=== PATIENT | female | born 1940 | race Caucasian/White ===

== ENCOUNTER 2017-05-04 10:40 | Inpatient (IN) | payer MEDICARE, MEDICAID ==
[~2017-05-04] VITALS: Ht 165.1 cm; Wt 63.5 kg
[~2017-05-04 10:40] MED LIST: ACET325T53 PO; AMIN30LI2 PO; ATOR10TA PO; BISA10SU12 RC; CHOL10005 PO; CRAN450C PO; ESCI10TA PO; FERR-38 PO; HYDR-552 PO; LEVO50TA8 PO; LISI10TA5 PO; METO-304 PO; MULT-1045 PO
--- NOTE | 2017-05-04 10:56 | NUR ---
Patient is admitted to telemetry floor under Dr Fuller for new onset seizure. Dr Fuller talked to our ER doctor. Baseline diagnostic tests will be done (blood, urine, CT head & chest x-ray) before sending patient to the floor per Dr Vinson.
[2017-05-04] MEDS ORDERED: IV NORMAL SALINE 500 ML BAG IV ONE (11:00)
[2017-05-04] MEDS ORDERED: RIVA10TA PO (11:04)
[2017-05-04] MEDS ORDERED: VITA200C70 PO (11:04)
[2017-05-04] MEDS ORDERED: DIPH25CA83 PO (11:04)
[2017-05-04] MEDS ORDERED: PANT40TA2 PO (11:04)
[2017-05-04] MEDS ORDERED: ALEN70TA3 PO (11:04)
[2017-05-04] MEDS ORDERED: MAGN400O6 PO (11:04)
[2017-05-04] MEDS ORDERED: COENZYME Q-10 PO (11:04)
[2017-05-04] MEDS ORDERED: AMLO2.5T PO (11:04)
[2017-05-04] MEDS ORDERED: ASCO500C16 PO (11:04)
[2017-05-04 11:26] LABS: EOSINOPHILS % (AUTO) 2.3 % (0.0-7.0); HEMATOCRIT 37.8 % (37-47); HEMOGLOBIN 12.6 G/DL (12.0-16.0); LYMPHOCYTES % (AUTO) 20.6 % (20.5-51.5); MEAN CORPUSCULAR HEMOGLOBIN 28.4 UUG (27.0-31.0); MEAN CORPUSCULAR HGB CONC 34 g/dL (32.0-37.0); MEAN CORPUSCULAR VOLUME 84.7 FL (81.0-99.0); MONOCYTES % (AUTO) 7.3 % (0.0-11.0); NEUTROPHILS % (AUTO) 69.1 % (38.5-71.5); RED BLOOD CELL COUNT(AUTO) 4.46 MIL/UL (4.2-5.4); WHITE BLOOD COUNT (AUTO) 5.3 K/UL (4.0-11.2)
[2017-05-04 11:27] LABS: BASOPHILS % (AUTO) 0.7 % (0.0-2.0); EOSINOPHILS # (AUTO) 0.1 K/uL (0.0-0.7); LYMPHOCYTES # (AUTO) 1.1 K/UL (0.8-4.8); MONOCYTES # (AUTO) 0.4 K/UL (0.1-1.30); NEUTROPHILS # (AUTO) 3.7 K/UL (1.8-8.9)
[2017-05-04 11:39] LABS: ALANINE AMINOTRANSFERASE 13 U/L (14-59); ALKALINE PHOSPHATASE 64 U/L (50-136); ASPARTATE AMINOTRANSFERASE 16 U/L (15-37); BILIRUBIN,DIRECT 0.1 mg/dL (0.0-0.2); BILIRUBIN,TOTAL 0.3 mg/dL (0.2-1.0); CARBON DIOXIDE 28 mmol/L (21-32); CHLORIDE 105 mmol/L (98-107); CREATININE 1.6 mg/dL (0.6-1.3); GLUCOSE 90 mg/dL (74-106); POTASSIUM 3.8 mmol/L (3.5-5.1); TOTAL PROTEIN, SERUM 7.3 g/dL (6.4-8.2); UREA NITROGEN, BLOOD 40 mg/dL (7-18)
[2017-05-04 11:44] LABS: PLATELET COUNT (AUTO) 42 K/UL (150-450)
[2017-05-04 11:52] LABS: *BILIRUBIN,URIN NEGATIVE (NEGATIVE); *BLOOD, URINE NEGATIVE (NEGATIVE); *CLARITY,URINE CLOUDY (CLEAR); *COLOR,URINE YELLOW (YELLOW); *KETONES,URINE NEGATIVE (NEGATIVE); *PROTEIN,URINE NEGATIVE (NEGATIVE); *UROBILINOGEN,URINE 0.2 E.U./dl (NORMAL); LEUKOCYTE ESTERASE ,URINE 2+ (NEGATIVE); NITRITE, URINE POSITIVE (NEGATIVE); PH,URINE 5.5 (5.0-8.0); UGLUCOSE NEGATIVE (NEGATIVE)
[2017-05-04 12:01] LABS: BACTERIA,URINE MANY /HPF (NONE SEEN); RBC,URINE 0-3 /HPF (0-3); SQUAMOUS EPITHELIAL CELL,UR FEW /HPF (NONE SEEN); WBC,URINE TNTC /HPF (0-3)
[2017-05-04 12:11] LABS: BAND % (MANUAL) 2 % (0-10); BASOPHILS % (MANUAL) 1 % (0-2); EOSINOPHILS % (MANUAL) 2 % (0-8); LYMPHOCYTES % (MANUAL) 27 % (20-40); MONOCYTES % (MANUAL) 8 % (2-10); NEUTROPHILS % (MANUAL) 60 % (42-75)
[2017-05-04] MEDS ORDERED: LEVOFLOXACIN 750 MG/D5W 150 ML PIGGYBACK IV ONE (12:15)
[2017-05-04 12:16] LABS: *AMPHETAMINE, URINE NEGATIVE (NEGATIVE); *BARBITURATE, URINE NEGATIVE (NEGATIVE); *CANNABINOID, URINE NEGATIVE (NEGATIVE); *COCCAINE, URINE NEGATIVE (NEGATIVE); *OPIATE, URINE NEGATIVE (NEGATIVE); *PHENCYCLIDINE SCREEN,URINE NEGATIVE (NEGATIVE)
[2017-05-04 12:17] LABS: ETHANOL < 3 MG/DL (0-0)
[2017-05-04] MEDS ORDERED: LEVOFLOXACIN 750MG/D5W 150 ML IV ONE (12:28)
--- NOTE | 2017-05-04 12:38 | NUR ---
Patient is resting comfortably on gurney with eyes closed, no acute change in condition seen, NAD, calm and breathing easily. No seizures seen while in ER.
[2017-05-04 13:15] VITALS: BP 117/42
[2017-05-04] MEDS ORDERED: ONDANSETRON 4 MG/2 ML VIAL IV PRN (13:15)
[2017-05-04] MEDS ORDERED: MAGNESIUM HYDROXIDE 30 ML LIQUID UDC PO PRN (13:15)
[2017-05-04] MEDS ORDERED: BISACODYL 10 MG SUPP.RECT RC PRN (13:15)
[2017-05-04] MEDS ORDERED: ACETAMINOPHEN 325 MG TABLET PO PRN (13:15)
[2017-05-04] MEDS ORDERED: MORPHINE SULFATE 2 MG/1 ML DISP.SYRIN IV PRN (13:15)
--- NOTE | 2017-05-04 13:15 | NUR ---
NEW PATIENT FROM ER TO ROOM 217 AWAKE ALERT [id number] ABLE TO FOLLOW SIMPLE DIRECTION WELL HX OF STROKE RT SIDE WEAKNESS ON FALL /ASPIRATION AND SEIZURE PRECAUTION BED ALARM ON AND CALL [facility] IN REACH
--- NOTE | 2017-05-04 14:00 | NUR ---
[facility] ANTIBIOTICS GIVEN DR NAVARRO SEE PATIENT EAT LUNCH MOD AMT RESTING NO PAIN OR SOB
[2017-05-04] MEDS: CEFTRIAXONE 1 G in IV DEXTROSE 5% 50 ML IV SCH (14:41)
[2017-05-04] MEDS: ASCORBIC ACID 500 MG TABLET PO SCH (14:41)
[2017-05-04] MEDS: MULTIVITAMINS,THERAPEUTIC TABLET PO SCH (14:41)
[2017-05-04] MEDS: CHOLECALCIFEROL 1,000 UNIT TABLET PO SCH (14:42)
[2017-05-04 15:42] VITALS: BP 118/50
--- NOTE | 2017-05-04 17:00 | NUR ---
refused to do eeg at this time dr dobbs was inform OF SITUATION NO NEW ORDER
[2017-05-04] MEDS ORDERED: RIVAROXABAN 10 MG TABLET PO SCH (18:00)
--- NOTE | 2017-05-04 18:00 | NUR ---
RESTING WELL HEMODYNAMIC STATUS STABLE NO ACUTE DISTRESS NO SEIZURE OR PAIN SAFETY MEASURE PROVIDED CALL [facility] IN REACH AND REMIND TO USE WHEN NEED
[2017-05-04 19:00] VITALS: BP 131/69
--- NOTE | 2017-05-04 20:00 | NUR ---
PATIENT AWAKE, ALERT,IN NO ACUTE DISTRESS,SON VISITING AT BEDSIDE, INFORMED HIM THAT PATIENT REFUSED EEG ,SON STATES HE WILL BE AVAILABLE ON SATURDAY IF NEEDED FOR EEG TEST,WILL NOTIFY MANAGER VIDEO.
[2017-05-04] MEDS: DOCUSATE SODIUM 100 MG CAPSULE PO SCH (20:25)
[2017-05-04] MEDS: LEVETIRACETAM 250 MG TABLET PO SCH (20:25)
[2017-05-04] MEDS: ATORVASTATIN 10 MG TABLET PO SCH (20:25)
[2017-05-04] MEDS: METOPROLOL TARTRATE 25 MG TABLET PO SCH (20:26)
[2017-05-04] MEDS ORDERED: METOPROLOL SUCCINATE XL 50 MG TAB.SR.24H PO SCH (21:00)
[2017-05-04] MEDS ORDERED: DOCUSATE SODIUM 250 MG CAPSULE PO SCH (21:00)
[2017-05-05 00:25] VITALS: BP 103/55
[2017-05-05 04:00] VITALS: BP 105/49
--- NOTE | 2017-05-05 06:00 | NUR ---
PATIENT SLEEP WELL THROUGH THE NIGHT,NO ACUTE DISTRESS NOTED,NSR ON MONITOR,NO SEIZURE ACTIVITY/SHIFT,SAFETY PRECAUTIONS MAINTAIN.
[2017-05-05] MEDS: PANTOPRAZOLE SODIUM 40 MG TABLET.DR PO SCH (06:19)
[2017-05-05] MEDS: LEVOTHYROXINE SODIUM 50 MCG TABLET PO SCH (06:19)
[2017-05-05 08:20] LABS: EOSINOPHILS # (AUTO) 0.1 K/uL (0.0-0.7); EOSINOPHILS % (AUTO) 2.4 % (0.0-7.0); HEMATOCRIT 35.5 % (37-47); HEMOGLOBIN 11.9 G/DL (12.0-16.0); LYMPHOCYTES # (AUTO) 1.3 K/UL (0.8-4.8); LYMPHOCYTES % (AUTO) 23.2 % (20.5-51.5); MEAN CORPUSCULAR HEMOGLOBIN 28.7 UUG (27.0-31.0); MEAN CORPUSCULAR HGB CONC 33 g/dL (32.0-37.0); MEAN CORPUSCULAR VOLUME 85.8 FL (81.0-99.0); MONOCYTES # (AUTO) 0.4 K/UL (0.1-1.30); MONOCYTES % (AUTO) 6.6 % (0.0-11.0); NEUTROPHILS # (AUTO) 3.7 K/UL (1.8-8.9); NEUTROPHILS % (AUTO) 67.8 % (38.5-71.5); RED BLOOD CELL COUNT(AUTO) 4.14 MIL/UL (4.2-5.4); WHITE BLOOD COUNT (AUTO) 5.5 K/UL (4.0-11.2)
[2017-05-05 08:23] LABS: ALANINE AMINOTRANSFERASE 12 U/L (14-59); ALKALINE PHOSPHATASE 56 U/L (50-136); ASPARTATE AMINOTRANSFERASE 14 U/L (15-37); BILIRUBIN,TOTAL 0.3 mg/dL (0.2-1.0); CARBON DIOXIDE 27 mmol/L (21-32); CHLORIDE 107 mmol/L (98-107); CHOLESTEROL 159 mg/dL (<200); CREATININE 1.6 mg/dL (0.6-1.3); GLUCOSE 86 mg/dL (74-106); HDL CHOLESTEROL 59 mg/dL (40-60); MAGNESIUM 1.8 mg/dL (1.8-2.4); PHOSPHOROUS 3.7 mg/dL (2.5-4.9); POTASSIUM 4.1 mmol/L (3.5-5.1); TOTAL PROTEIN, SERUM 6.6 g/dL (6.4-8.2); TRIGLYCERIDES 89 MG/DL (30-150); UREA NITROGEN, BLOOD 29 mg/dL (7-18)
[2017-05-05 08:27] LABS: IRON, SERUM 73 ug/dL (50-175)
[2017-05-05 08:34] LABS: PLATELET COUNT (AUTO) 33 K/UL (150-450)
[2017-05-05] MEDS: MULTIVITAMINS,THERAPEUTIC TABLET PO SCH (08:54)
[2017-05-05] MEDS: ASCORBIC ACID 500 MG TABLET PO SCH (08:54)
[2017-05-05] MEDS: VITAMIN E 400 UNITS CAPSULE PO SCH (08:54)
[2017-05-05] MEDS: ESCITALOPRAM OXALATE 10 MG TABLET PO SCH (08:54)
[2017-05-05] MEDS: METOPROLOL TARTRATE 25 MG TABLET PO SCH ×2 (08:55→20:31)
[2017-05-05] MEDS: LEVETIRACETAM 250 MG TABLET PO SCH ×2 (08:55→20:29)
[2017-05-05] MEDS: CHOLECALCIFEROL 1,000 UNIT TABLET PO SCH (08:55)
[2017-05-05 09:57] LABS: BAND % (MANUAL) 1 % (0-10); EOSINOPHILS % (MANUAL) 2 % (0-8); LYMPHOCYTES % (MANUAL) 26 % (20-40); MONOCYTES % (MANUAL) 10 % (2-10); NEUTROPHILS % (MANUAL) 61 % (42-75)
[2017-05-05 11:57] VITALS: BP 147/73
--- NOTE | 2017-05-05 12:01 | NUR ---
PT GETS AGITATED, PT GETS UP THE BED. PER DR. ROJAS "OK FOR 1:1 SITTER". ADVISED NURSE HORTICULTURAL THERAPIST. ALL SAFETY NEEDS ARE MET.
[2017-05-05] MEDS: CEFTRIAXONE 1 G in IV DEXTROSE 5% 50 ML IV SCH (13:59)
[2017-05-05 14:30] LABS: *BILIRUBIN,URIN NEGATIVE (NEGATIVE); *BLOOD, URINE NEGATIVE (NEGATIVE); *CLARITY,URINE CLOUDY (CLEAR); *COLOR,URINE YELLOW (YELLOW); *KETONES,URINE NEGATIVE (NEGATIVE); *PROTEIN,URINE NEGATIVE (NEGATIVE); *UROBILINOGEN,URINE 0.2 E.U./dl (NORMAL); LEUKOCYTE ESTERASE ,URINE 2+ (NEGATIVE); NITRITE, URINE NEGATIVE (NEGATIVE); PH,URINE 5.5 (5.0-8.0); UGLUCOSE NEGATIVE (NEGATIVE)
[2017-05-05 14:43] LABS: *CREATININE,URINE 43.6 mg/dL (30-125); *URINE TOTAL PROTEIN RANDOM 11.9 mg/dL (<150/24HR)
[2017-05-05 14:51] LABS: BACTERIA,URINE FEW /HPF (NONE SEEN); SQUAMOUS EPITHELIAL CELL,UR MANY /HPF (NONE SEEN); WBC,URINE 80-100 /HPF (0-3)
[2017-05-05 16:46] VITALS: BP 138/72
[2017-05-05 20:00] VITALS: BP 142/79
[2017-05-05] MEDS: diphenhydrAMINE 25 MG CAP PO PRN (20:29)
[2017-05-05] MEDS: ATORVASTATIN 10 MG TABLET PO SCH (22:35)
[2017-05-05] MEDS: DOCUSATE SODIUM 100 MG CAPSULE PO SCH (22:35)
[2017-05-06] VITALS: BP 125/62
[2017-05-06 04:00] VITALS: BP 136/76
[2017-05-06] MEDS: PANTOPRAZOLE SODIUM 40 MG TABLET.DR PO SCH (06:45)
[2017-05-06] MEDS: LEVOTHYROXINE SODIUM 50 MCG TABLET PO SCH (06:45)
[2017-05-06 07:24] LABS: EOSINOPHILS # (AUTO) 0.1 K/uL (0.0-0.7); EOSINOPHILS % (AUTO) 1.9 % (0.0-7.0); HEMATOCRIT 38.1 % (37-47); HEMOGLOBIN 12.8 G/DL (12.0-16.0); LYMPHOCYTES # (AUTO) 1.1 K/UL (0.8-4.8); LYMPHOCYTES % (AUTO) 16.9 % (20.5-51.5); MEAN CORPUSCULAR HEMOGLOBIN 28.4 UUG (27.0-31.0); MEAN CORPUSCULAR HGB CONC 34 g/dL (32.0-37.0); MEAN CORPUSCULAR VOLUME 84.5 FL (81.0-99.0); MONOCYTES # (AUTO) 0.6 K/UL (0.1-1.30); MONOCYTES % (AUTO) 8.9 % (0.0-11.0); NEUTROPHILS # (AUTO) 4.9 K/UL (1.8-8.9); NEUTROPHILS % (AUTO) 72.3 % (38.5-71.5); RED BLOOD CELL COUNT(AUTO) 4.51 MIL/UL (4.2-5.4); WHITE BLOOD COUNT (AUTO) 6.7 K/UL (4.0-11.2)
[2017-05-06 07:24] LABS: ALANINE AMINOTRANSFERASE 11 U/L (14-59); ALKALINE PHOSPHATASE 66 U/L (50-136); ASPARTATE AMINOTRANSFERASE 18 U/L (15-37); BILIRUBIN,TOTAL 0.5 mg/dL (0.2-1.0); CARBON DIOXIDE 27 mmol/L (21-32); CHLORIDE 105 mmol/L (98-107); CREATININE 1.6 mg/dL (0.6-1.3); GLUCOSE 102 mg/dL (74-106); MAGNESIUM 1.8 mg/dL (1.8-2.4); POTASSIUM 4.2 mmol/L (3.5-5.1); UREA NITROGEN, BLOOD 25 mg/dL (7-18)
[2017-05-06 07:31] LABS: PLATELET COUNT (AUTO) 49 K/UL (150-450)
[2017-05-06 07:52] VITALS: BP 115/62
[2017-05-06] MEDS: ASCORBIC ACID 500 MG TABLET PO SCH (09:19)
[2017-05-06] MEDS: LEVETIRACETAM 250 MG TABLET PO SCH ×2 (09:19→21:22)
[2017-05-06] MEDS: ESCITALOPRAM OXALATE 10 MG TABLET PO SCH (09:19)
[2017-05-06] MEDS: VITAMIN E 400 UNITS CAPSULE PO SCH (09:19)
[2017-05-06] MEDS: METOPROLOL TARTRATE 25 MG TABLET PO SCH ×2 (09:20→21:22)
[2017-05-06] MEDS: MULTIVITAMINS,THERAPEUTIC TABLET PO SCH (09:20)
[2017-05-06] MEDS: CHOLECALCIFEROL 1,000 UNIT TABLET PO SCH (10:01)
[2017-05-06 12:00] VITALS: BP 114/53
[2017-05-06 12:14] LABS: BASOPHILS % (MANUAL) 1 % (0-2); EOSINOPHILS % (MANUAL) 4 % (0-8); LYMPHOCYTES % (MANUAL) 17 % (20-40); NEUTROPHILS % (MANUAL) 74 % (42-75)
[2017-05-06 12:15] LABS: MONOCYTES % (MANUAL) 4 % (2-10)
[2017-05-06] MEDS: CEFTRIAXONE 1 G in IV DEXTROSE 5% 50 ML IV SCH (13:26)
[2017-05-06 15:51] VITALS: BP 124/64
[2017-05-06] MEDS ORDERED: FOSFOMYCIN TROMETHAMINE 3 GM PACKET PO ONE (17:00)
--- NOTE | 2017-05-06 19:39 | NUR ---
no changes noted. all safety needs are met.
--- NOTE | 2017-05-06 19:40 | NUR ---
PT RECEIVED IN BED, AWAKE. A/OX2. 1:1 SITTER AT BEDSIDE FOR SAFETY. V/S STABLE. NO SIGNS OF ACUTE DISTRESS NOTED. NO COMPLAINTS OF PAIN AT THIS TIME. IVF INFUSING. SAFETY MEASURES IMPLEMENTED. SEIZURE PRECAUTIONS PLACED. ISOLATION PRECAUTIONS MAINTAINED. CALL LIGHT WITHIN REACH. WILL CONTINUE TO MONITOR.
--- NOTE | 2017-05-06 20:51 | NUR ---
PT SHOWS 154ML ON BLADDER SCAN. NO STRAIGHT CATH NEEDED.
--- NOTE | 2017-05-06 21:09 | NUR ---
Clinical pharmacy note-Gentamicin dosing per pharmacy Subjective: To start Gentamicin dosing on this patient for UTI(E coli ESBL) Objective: BUN 25 Scr 1.6 WBC 6.7 Temp 99.2 Ht 5'5" Wt 140 lbs Assessment/Plan To start Gentamicin 80mg IV every 18hrs (first dose tonight at 2200) and draw peak and trough by 4th dose(not ordered yet) for expected peak 6.2 and trough 0.96. Will monitor renal function closely to adjust the dose if needed. Will follow daily.
[2017-05-06] MEDS: ATORVASTATIN 10 MG TABLET PO SCH (21:22)
[2017-05-06] MEDS: DOCUSATE SODIUM 100 MG CAPSULE PO SCH (21:22)
[2017-05-06] MEDS: GENTAMICIN SULFATE INJ 80 MG in IV DEXTROSE 5% 50 ML IV SCH (21:22)
--- NOTE | 2017-05-07 05:57 | NUR ---
END OF SHIFT NOTES. PT SLEPT WELL THROUGHOUT SHIFT. 1:1 SITTER AT BEDSIDE FOR SAFETY. V/S STABLE. NO ACUTE DISTRESS NOTED. NO COMPLAINTS OF PAIN. NEEDS ATTENDED. SAFETY MAINTAINED. ISOLATION MAINTAINED. CALL LIGHT WITHIN REACH.
[2017-05-07] MEDS: PANTOPRAZOLE SODIUM 40 MG TABLET.DR PO SCH (06:31)
[2017-05-07] MEDS: LEVOTHYROXINE SODIUM 50 MCG TABLET PO SCH (06:31)
[2017-05-07 06:36] VITALS: BP 107/53
--- NOTE | 2017-05-07 08:00 | NUR ---
RESTING IN BED NO SIGNS OF PAIN OR DISTRESS, CALM AND COOPERATIVE. CONTINUE 1:1 FOR SAFETY
[2017-05-07] MEDS: ESCITALOPRAM OXALATE 10 MG TABLET PO SCH (08:02)
[2017-05-07] MEDS: METOPROLOL TARTRATE 25 MG TABLET PO SCH ×2 (08:02→20:24)
[2017-05-07] MEDS: MULTIVITAMINS,THERAPEUTIC TABLET PO SCH (08:03)
[2017-05-07] MEDS: CHOLECALCIFEROL 1,000 UNIT TABLET PO SCH (08:03)
[2017-05-07] MEDS: VITAMIN E 400 UNITS CAPSULE PO SCH (08:03)
[2017-05-07] MEDS: LEVETIRACETAM 250 MG TABLET PO SCH ×2 (08:03→20:13)
[2017-05-07] MEDS: ASCORBIC ACID 500 MG TABLET PO SCH (08:03)
[2017-05-07 11:43] VITALS: BP 105/68
--- NOTE | 2017-05-07 12:00 | NUR ---
NO ACUTE CHANGE
--- NOTE | 2017-05-07 14:01 | NUR ---
Clinical pharmacy note-Gentamicin dosing per pharmacy Subjective: To continue Gentamicin dosing on this patient for UTI(E coli ESBL) Objective: BUN 25 (05/06) Scr 1.6 (05/06) WBC 6.7 (05/06) Temp 97.7 Ht 5'5" Wt 140 lbs Assessment/Plan Will continue Gentamicin 80mg IV every 18hrs (second dose tonight at 1600) and draw peak and trough by 4th dose(not ordered yet) for expected peak 6.2 and trough 0.96. Will monitor renal function closely to adjust the dose if needed. Will follow daily.
[2017-05-07 15:11] VITALS: BP 108/71
[2017-05-07] MEDS: GENTAMICIN SULFATE INJ 80 MG in IV DEXTROSE 5% 50 ML IV SCH (16:28)
--- NOTE | 2017-05-07 17:02 | NUR ---
CONTINUE GENTAMYCIN IV, NO ADVERSE REACTION. 1:1 SITTER
[2017-05-07] MEDS: DOCUSATE SODIUM 100 MG CAPSULE PO SCH (20:13)
[2017-05-07] MEDS: ATORVASTATIN 10 MG TABLET PO SCH (20:13)
[2017-05-07 21:00] VITALS: BP 151/83
[2017-05-08 05:00] VITALS: BP 117/62
[2017-05-08] MEDS: PANTOPRAZOLE SODIUM 40 MG TABLET.DR PO SCH (05:59)
[2017-05-08] MEDS: LEVOTHYROXINE SODIUM 50 MCG TABLET PO SCH (05:59)
--- NOTE | 2017-05-08 06:39 | NUR ---
PT SLEPT WELL OVERNIGHT, NO SEIZURE EPISODE, INCONTINENT OF BLADDER, NO BM, BLADDER SCN X2 ([id number]/[id number] CC) NO STRAIGHT CATH PERFORMED. HEPLOCK IV ,CONTINUE TO MONITOR FOR SAFETY WITH CONSTANT OBSERVER, SITTER.
[2017-05-08 07:06] LABS: ALANINE AMINOTRANSFERASE 12 U/L (14-59); ALKALINE PHOSPHATASE 54 U/L (50-136); ASPARTATE AMINOTRANSFERASE 17 U/L (15-37); BILIRUBIN,TOTAL 0.3 mg/dL (0.2-1.0); CARBON DIOXIDE 24 mmol/L (21-32); CHLORIDE 106 mmol/L (98-107); CREATININE 1.5 mg/dL (0.6-1.3); GLUCOSE 101 mg/dL (74-106); PHOSPHOROUS 3.7 mg/dL (2.5-4.9); POTASSIUM 4.3 mmol/L (3.5-5.1); TOTAL PROTEIN, SERUM 6.7 g/dL (6.4-8.2); UREA NITROGEN, BLOOD 37 mg/dL (7-18)
[2017-05-08 07:13] VITALS: BP 115/67
[2017-05-08 07:20] LABS: BASOPHILS % (AUTO) 0.9 % (0.0-2.0); EOSINOPHILS # (AUTO) 0.2 K/uL (0.0-0.7); EOSINOPHILS % (AUTO) 3.7 % (0.0-7.0); HEMOGLOBIN 11.7 G/DL (12.0-16.0); LYMPHOCYTES # (AUTO) 1.6 K/UL (0.8-4.8); MEAN CORPUSCULAR HEMOGLOBIN 27.9 UUG (27.0-31.0); MEAN CORPUSCULAR HGB CONC 33 g/dL (32.0-37.0); MEAN CORPUSCULAR VOLUME 83.5 FL (81.0-99.0); MONOCYTES # (AUTO) 0.4 K/UL (0.1-1.30); MONOCYTES % (AUTO) 7.2 % (0.0-11.0); NEUTROPHILS # (AUTO) 3.1 K/UL (1.8-8.9); NEUTROPHILS % (AUTO) 58.2 % (38.5-71.5); RED BLOOD CELL COUNT(AUTO) 4.19 MIL/UL (4.2-5.4); WHITE BLOOD COUNT (AUTO) 5.3 K/UL (4.0-11.2)
[2017-05-08 07:29] LABS: PLATELET COUNT (AUTO) 36 K/UL (150-450)
--- NOTE | 2017-05-08 07:30 | NUR ---
NO SIGNS OF DISTRESS OR SEIZURE CLOSELY MONITORED
[2017-05-08] MEDS: ASCORBIC ACID 500 MG TABLET PO SCH (08:23)
[2017-05-08] MEDS: LEVETIRACETAM 250 MG TABLET PO SCH (08:24)
[2017-05-08] MEDS: MULTIVITAMINS,THERAPEUTIC TABLET PO SCH (08:24)
[2017-05-08] MEDS: CHOLECALCIFEROL 1,000 UNIT TABLET PO SCH (08:24)
[2017-05-08] MEDS: ESCITALOPRAM OXALATE 10 MG TABLET PO SCH (08:24)
[2017-05-08] MEDS: diphenhydrAMINE 25 MG CAP PO PRN (08:24)
[2017-05-08] MEDS: VITAMIN E 400 UNITS CAPSULE PO SCH (08:24)
[2017-05-08] MEDS: METOPROLOL TARTRATE 25 MG TABLET PO SCH (08:26)
[2017-05-08 10:42] LABS: EOSINOPHILS % (MANUAL) 4 % (0-8); LYMPHOCYTES % (MANUAL) 31 % (20-40); MONOCYTES % (MANUAL) 7 % (2-10); NEUTROPHILS % (MANUAL) 58 % (42-75)
[2017-05-08] MEDS: GENTAMICIN SULFATE INJ 80 MG in IV DEXTROSE 5% 50 ML IV SCH (10:45)
--- NOTE | 2017-05-08 11:30 | NUR ---
SEEN BY DR LOPEZ SAID CLEARED FOR DISCHARGED FROM NEURO STANDPOINT WILL NOTIFY DR NAVARRO
[2017-05-08 11:33] VITALS: BP 142/52
--- NOTE | 2017-05-08 12:00 | NUR ---
CONTINUE 1:1 SITTER FOR SAFETY, PLAN DC THIS PM
--- NOTE | 2017-05-08 15:23 | NUR ---
Clinical pharmacy note-Gentamicin dosing per pharmacy Subjective: To continue Gentamicin dosing on this patient for UTI(E coli ESBL) Objective: BUN 37 Scr 1.5 WBC 5.3 Temp 98 Ht 5'5" Wt 140 lbs Assessment/Plan Will continue Gentamicin 80mg IV every 18hrs (third dose given today at 1045) and draw peak and trough by 4th dose(ordered on 05/09-400 dose) for expected peak 6.2 and trough 0.96. Will monitor renal function closely to adjust the dose if needed. Will follow daily.
[2017-05-08 15:34] VITALS: BP 132/52
--- NOTE | 2017-05-08 16:00 | NUR ---
SEEN BY DR NAVARRO WITH DC ORDER, LATHE SPOTTER AWARE
[2017-05-08] MEDS ORDERED: METO25TA6 PO (16:45)
[2017-05-08] MEDS ORDERED: RXGEN XX (16:54)
[2017-05-08] MEDS ORDERED: ASPI-618 PO (16:54)
--- NOTE | 2017-05-08 18:13 | NUR ---
REPORT GIVEN TO KOFFI SALDIVAR AT [facility]
--- NOTE | 2017-05-08 19:30 | NUR ---
RECEIVED PATIENT LAYING IN BED COMFORTABLY. NO ACUTE DISTRESS NOTED. PLAN TO D/C AT 1999. WAITING FOR MEDICAL TRANSPORT TEAM. SAFETY INITIATED. CALL LIGHT WITHIN REACH. SALINE LOCK ON THE RIGHT WRIST, STAYING BECAUSE CONT. ANTIBIOTICS AT [facility]. WILL CONTINUE TO MONITOR. DISCHARGE PROTOCOL FOLLOWED.
[2017-05-10] MEDS ORDERED: ALENDRONATE SODIUM 70 MG TABLET PO SCH (06:00)
== END 2017-05-08 20:15 | DRG 100 ==
LOC: ER 10:40 → TELE 12:53 → MED 05-06 11:10
PROVIDERS: ADMIT Internal Medicine; ATTEND Internal Medicine
DX: G40.909 Epilepsy, unspecified, not intractable, without status epilepticus (principal); N17.0 Acute kidney failure with tubular necrosis; G93.40 Encephalopathy, unspecified; N39.0 Urinary tract infection, site not specified; I69.351 Hemiplegia and hemiparesis following cerebral infarction affecting right dominant side; S32.039A Unspecified fracture of third lumbar vertebra, initial encounter for closed fracture; M54.30 Sciatica, unspecified side; E03.9 Hypothyroidism, unspecified; E78.5 Hyperlipidemia, unspecified; D69.6 Thrombocytopenia, unspecified; B96.89 Other specified bacterial agents as the cause of diseases classified elsewhere; F03.90 Unspecified dementia, unspecified severity, without behavioral disturbance, psychotic disturbance, mood disturbance, and anxiety; K21.9 Gastro-esophageal reflux disease without esophagitis; Z91.040 Latex allergy status; Z88.0 Allergy status to penicillin; Z91.048 Other nonmedicinal substance allergy status; I25.10 Atherosclerotic heart disease of native coronary artery without angina pectoris; I10 Essential (primary) hypertension; Z86.718 Personal history of other venous thrombosis and embolism; M54.10 Radiculopathy, site unspecified; S22.089S Unspecified fracture of T11-T12 vertebra, sequela; S36.039S Unspecified laceration of spleen, sequela; X58.XXXS Exposure to other specified factors, sequela; Y92.9 Unspecified place or not applicable; D46.9 Myelodysplastic syndrome, unspecified; I13.10 Hypertensive heart and chronic kidney disease without heart failure, with stage 1 through stage 4 chronic kidney disease, or unspecified chronic kidney disease; N18.9 Chronic kidney disease, unspecified
CPT/HCPCS: 36415; 51702; 70030-TC; 70450; 71010; 76770; 80307; 83550; 83735; 84100; 84156; 84300; 84443; 85025; 85730; 87077; 87086; 93005; 95819; 97110; 97116; 97161; 97165; 97530; A4663; C1758; G0480; J0696; J1580; J1956; J7040; J7060; Q0163